=== PATIENT | female | born 1975 | race Caucasian/White ===

== ENCOUNTER 2017-11-16 15:21 | Emergency (ER) | payer BC, OTHER ==
[2017-11-16 16:48] VITALS: BP 131/91
--- NOTE | 2017-11-16 17:55 | UC ---
Throat Pain/Nasal Sage HPI - HPI Summary HPI Summary: finished tamiflu- then developed a sore throat with white pustula---Md called in augmentin --concerned because she is getting worse - History of Current Complaint Chief Complaint: UCGeneralIllness Stated Complaint: SORE THROAT Time Seen by Provider: 11/16/17 17:49 Hx Obtained From: Patient Hx Last Menstrual Period: spotting still ?: No Onset/Duration: Sudden Onset Severity: Moderate Pain Intensity: 6 Cough: None Associated Signs & Symptoms: Positive: Hoarseness - Allergies/Home Medications Allergies/Adverse Reactions: Allergies Allergy/AdvReac Type Severity Reaction Status Date / Time No Known Allergies Allergy Verified 11/16/17 16:37 Home Medications: Home Medications Acetaminophen [Acetaminophen Extra Strength] 1,000 mg PO ONCE 11/16/17 [History Confirmed 11/16/17] Ibuprofen TAB* [Motrin TAB* 600 MG] 600 mg PO ONCE 11/16/17 [History Confirmed 11/16/17] PMH/Surg Hx/FS Hx/Imm Hx Previously Healthy: Yes - Surgical History Surgical History: Yes Surgery Procedure, Year, and Place: csection x1;. MYOMECTOMY UTERINE FIBROID; - Family History Known Family History: Positive: Other - Positive MGM for Breast CA in mother - Social History Occupation: Employed Full-time Lives: With Family Alcohol Use: None Substance Use Type: None Smoking Status (MU): Never Smoked Tobacco Review of Systems Constitutional: Negative Skin: Negative Eyes: Negative ENT: Sore Throat Respiratory: Cough Cardiovascular: Negative Gastrointestinal: Negative Genitourinary: Negative Motor: Negative Neurovascular: Negative Musculoskeletal: Negative Neurological: Headache Psychological: Negative Is Patient Immunocompromised?: No All Other Systems Reviewed And Are Negative: Yes Physical Exam Triage Information Reviewed: Yes Appearance: Well-Nourished, Ill-Appearing, Pain Distress Vital Signs: Initial Vital Signs Temp 98.8 F 11/16/17 16:40 Pulse 98 11/16/17 16:40 Resp 18 11/16/17 16:40 BP 131/91 11/16/17 16:40 Pulse Ox 99 11/16/17 16:40 Vital Signs Reviewed: Yes Eye Exam: Normal Eyes: Positive: Conjunctiva Clear ENT Exam: Normal ENT: Positive: Normal ENT inspection, Hearing grossly normal, Pharyngeal erythema, Nasal congestion, Tonsillar swelling, Tonsillar exudate, Uvula midline. Negative: TMs normal, Trismus, Muffled voice, Hoarse voice, Dental tenderness, Sinus tenderness Dental Exam: Normal Neck exam: Normal Neck: Positive: Supple, Nontender, No Lymphadenopathy Respiratory Exam: Normal Respiratory: Positive: Chest non-tender, Lungs clear, Normal breath sounds, No respiratory distress, No accessory muscle use Cardiovascular Exam: Normal Cardiovascular: Positive: RRR, No Murmur, Pulses Normal, Brisk Capillary Refill Abdominal Exam: Normal Abdomen Description: Positive: Nontender, No Organomegaly, Soft. Negative: CVA Tenderness (R), CVA Tenderness (L) Musculoskeletal Exam: Normal Musculoskeletal: Positive: Strength Intact, ROM Intact, No Edema Neurological Exam: Normal Neurological: Positive: Alert, Muscle Tone Normal Psychological Exam: Normal Skin Exam: Normal Throat Pain/Nasal Course/Dx - Course Assessment/Plan: prednisone, robitussin and codiene, draw labs follow with pcp - Differential Dx/Diagnosis Provider Diagnoses: Viral pharyngitis Discharge - Discharge Plan Condition: Stable Disposition: HOME Prescriptions: guaiFENesin/CODIEN 100MG-10MG* [Robitussin AC 100Mg-10Mg*] 5 - 10 ml PO Q4H PRN #60 ml MDD 40 PRN Reason: cough predniSONE TAB* [Deltasone TAB*] 40 mg PO DAILY 6 Days #9 tab Patient Education Materials: Viral Syndrome (ED) Referrals: Russell Bradley DO [Primary Care Provider] - 2 Days
[2017-11-16] MEDS ORDERED: predniSONE TAB* 20 MG PO ONE ×2 (18:05→19:53)
--- NOTE | 2017-11-16 19:34 | RAD ---
INDICATION: Chest pain with inspiration. Cough, cold symptoms. Shortness of breath. COMPARISON: July 03, 2016 TECHNIQUE: Dual energy PA and routine lateral views of the chest were obtained. REPORT: Aside from mild apical pleural parenchymal scarring the lungs and pleural spaces are clear. Negative for pneumothorax. The heart, pulmonary vasculature, and mediastinal contours are unremarkable. Unremarkable osseous structures and soft tissue contours. IMPRESSION: No evidence for acute intrathoracic disease.
[2017-11-16] MEDS ORDERED: guaiFENesin/CODIEN 100MG-10MG* 5 ML UDC PO ONE (19:57)
[2017-11-17 14:19] LABS: Hematocrit 38 % (35-47); Hemoglobin 12.7 g/dl (12.0-16.0); Mean Corpuscular HGB Conc 33 g/dl (31-36); Mean Corpuscular Hemoglobin 28 pg (27-31); Mean Corpuscular Volume 84 fL (80-97); Mean Platelet Volume 8 um3 (7.4-10.4); Platelet Count 222 10^3/ul (150-450); Red Blood Count 4.57 10^6/ul (4.0-5.4); Red Cell Distribution Width 14 % (10.5-15)
[2017-11-17 14:32] LABS: EGFR Non-African American 86.6 (>60)
[2017-11-17 14:44] LABS: ABS Basophils 0 10^3/ul (0-0.2); ABS Eosinophils 0.1 10^3/ul (0-0.6); ABS Monocytes 0.4 10^3/ul (0-0.8); ABS Neutrophils 7.5 10^3/ul (1.5-7.7); ABS Nucleated RBC 0 10^3/ul; Eosinophil % 1.6 % (0-6); Lymphocyte % 10.6 % (25-47); Nucleated Red Blood Cells % 0.1
--- NOTE | 2017-11-17 16:43 | UC ---
- Progress Note Progress Note: Call patient and notify her that her mono test is negative
== END 2017-11-16 20:30 | disposition home or self-care (01) ==
LOC: UCEAST 15:21
DX: J02.8 Acute pharyngitis due to other specified organisms (principal); R05 Cough; R51 Headache
CPT/HCPCS: 36415; 71046; 80053; 85025; 86308; 86664; 86665; 87502; 87651; 99213; A9270-GY; G0463; J7512

== ENCOUNTER 2018-02-09 12:27 | Emergency (ER) | payer BC ==
--- NOTE | 2018-02-09 14:06 | RAD ---
INDICATION: Neck pain status post injury. COMPARISON: There are no prior studies available for comparison. TECHNIQUE: A single lateral film of the cervical spine was obtained. FINDINGS: C1-C7 are visualized. The vertebra are in normal alignment. No prevertebral soft tissue swelling or fracture is seen. There is mild diffuse degenerative disc disease throughout the cervical spine. IMPRESSION: LIMITED STUDY, NO EVIDENCE FOR FRACTURE OR SUBLUXATION.
--- NOTE | 2018-02-09 14:38 | RAD ---
INDICATION: Trauma, neck pain. COMPARISON: Comparison is made with a prior exam of the cervical spine obtained earlier today. TECHNIQUE: 5 views of the cervical spine were obtained including lateral, oblique, AP, open-mouth odontoid views. FINDINGS: C1-C7 are visualized. The vertebra are in normal alignment. No prevertebral soft tissue swelling or fracture is seen. There is mild diffuse degenerative disc disease throughout the cervical spine. There appears to be mild to moderate bilateral neural foraminal narrowing at the C4-C5, C5-C6 and C6-C7 levels. IMPRESSION: 1. NO EVIDENCE FOR FRACTURE OR SUBLUXATION. 2. MILD TO MODERATE CERVICAL SPONDYLOSIS.
[2018-02-09 14:51] VITALS: BP 162/99
--- NOTE | 2018-02-09 15:00 | UC ---
Neck Pain HPI - HPI Summary HPI Summary: This is a 42 yo female who hit her head yesterday and is here today with c/o neck pain. She was under her porch and struck her head on a beam, she had immediate pain in her neck. No LOC. She has FROM in her neck but pain with any movement. No numbness, tingling or weakness in extremities. - History of Current Complaint Chief Complaint: UCHeadInjury Stated Complaint: NECK AND HEAD INJURY Hx Last Menstrual Period: more than 1 year Pain Intensity: 6 - Allergies/Home Medications Allergies/Adverse Reactions: Allergies Allergy/AdvReac Type Severity Reaction Status Date / Time No Known Allergies Allergy Verified 02/09/18 12:55 PMH/Surg Hx/FS Hx/Imm Hx Previously Healthy: Yes - Surgical History Surgical History: Yes Surgery Procedure, Year, and Place: csection x1;. MYOMECTOMY UTERINE FIBROID; - Family History Known Family History: Positive: Other - Positive MGM for Breast CA in mother - Social History Alcohol Use: Rare Substance Use Type: None Smoking Status (MU): Never Smoked Tobacco Review Of Systems Constitutional: Positive: Negative Skin: Positive: Negative Eyes: Positive: Negative ENT: Positive: Negative Respiratory: Positive: Negative Cardiovascular: Positive: Negative Gastrointestinal: Positive: Negative Genitourinary: Positive: Negative Musculoskeletal: Positive: Arthralgia Neurological: Positive: Negative Psychological: Positive: Negative All Other Systems Reviewed And Are Negative: No Physical Exam Triage Information Reviewed: Yes Appearance: Pain Distress - mild Vital Signs: Initial Vital Signs Temp 98.3 F 02/09/18 12:48 Pulse 87 02/09/18 12:48 Resp 18 02/09/18 12:48 BP 152/100 02/09/18 12:48 Pulse Ox 100 02/09/18 12:48 Vital Signs Reviewed: Yes ENT: Positive: Tonsillar swelling - L Neck exam: Normal Neck: Positive: Supple, Nontender Respiratory Exam: Normal Respiratory: Positive: Chest non-tender, Lungs clear Cardiovascular: Positive: RRR, No Murmur Abdomen Description: Positive: Nontender Musculoskeletal: Positive: Other: - TTP over mid cervical spine and trapezium on the R Neurological: Positive: Muscle Tone Normal, Other: - sensation and strength intact Psychological Exam: Normal Skin Exam: Normal Diagnostics - Laboratory Diagnostic Studies Completed/Ordered: XR CS - no fx or subluxation Neck Pain Course/Dx - Course Course Of Treatment: 42 yo female who injured her neck yesterday. XR neg for fx. Recommend NSAIDs, heat and muscle relaxants - Differential Dx/Diagnosis Differential Dx/HQI/PQRI: Cervical Fracture, Sprain, Strain Provider Diagnoses: 1. Cervical strain Discharge - Sign-Out/Discharge Documenting (check all that apply): Discharge/Admit/Transfer - Discharge Plan Condition: Stable Disposition: HOME Prescriptions: Cyclobenzaprine TAB* [Flexeril 10 MG TAB*] 10 mg PO TID PRN #30 tab PRN Reason: muscle spasm Hydrocodone/Acetaminophen [Hydrocodone-Acetamin 5-325 mg] 1 each PO Q4H PRN #30 tablet MDD 6 tabs PRN Reason: Pain Patient Education Materials: Cervical Strain (ED) Referrals: Chrissy Lu PA [Primary Care Provider] - If Needed Additional Instructions: Instructions: 1. Please cont ibuprofen 600 mg three times daily as needed 2. Use muscle relaxant and narcotic pain medication as needed for pain 3. Apply heat frequently - Billing Disposition and Condition Condition: STABLE Disposition: HOME
== END 2018-02-09 15:00 | disposition home or self-care (01) ==
LOC: UCEAST 12:27
DX: S16.1XXA Strain of muscle, fascia and tendon at neck level, initial encounter (principal); W22.09XA Striking against other stationary object, initial encounter; Y93.89 Activity, other specified; Y92.008 Other place in unspecified non-institutional (private) residence as the place of occurrence of the external cause; M47.812 Spondylosis without myelopathy or radiculopathy, cervical region
CPT/HCPCS: 72020; 72050; 99212; G0463

== ENCOUNTER 2019-01-18 17:11 | Emergency (ER) | payer BC, OTHER ==
--- NOTE | 2019-01-18 17:58 | UC ---
Throat Pain/Nasal Sage HPI - HPI Summary HPI Summary: 43 yo female presents with sore throat since yesterday. She tells me that she is concerned she has strep because she has toddlers at home. Her kids were sick a week ago with cold symptoms and are on antibiotics and feeling better. Pt is eating and drinking well. Denies fever or chills. She took some ibuprofen for her discomfort with mild relief. - History of Current Complaint Stated Complaint: SORE THROAT Time Seen by Provider: 01/18/19 17:58 Hx Obtained From: Patient Hx Last Menstrual Period: more than 1 year Onset/Duration: Sudden Onset Severity: Mild Pain Intensity: 3 Pain Scale Used: 0-10 Numeric - Allergies/Home Medications Allergies/Adverse Reactions: Allergies Allergy/AdvReac Type Severity Reaction Status Date / Time No Known Allergies Allergy Verified 11/23/18 07:47 PMH/Surg Hx/FS Hx/Imm Hx - Additional Past Medical History Additional PMH: None - Surgical History Surgical History: Yes Surgery Procedure, Year, and Place: csection x1;. MYOMECTOMY UTERINE FIBROID; - Family History Known Family History: Positive: Hypertension, Other - Positive MGM for Breast CA in mother - Social History Alcohol Use: Rare Substance Use Type: None Smoking Status (MU): Never Smoked Tobacco Review of Systems All Other Systems Reviewed And Are Negative: Yes Constitutional: Positive: Negative Skin: Positive: Negative Eyes: Positive: Negative ENT: Positive: Sore Throat Respiratory: Positive: Negative Cardiovascular: Positive: Negative Neurological: Positive: Negative Psychological: Positive: Negative Physical Exam - Summary Physical Exam Summary: GENERAL: NAD. WDWN. No pain distress. SKIN: No rashes, sores, lesions, or open wounds. HEENT: Head: AT/NC Eyes: EOM intact. Conjunctiva clear without inflammation or discharge. Ears: Hearing grossly normal. TMs intact, no bulging, erythema, or edema. Nose: Nasal mucosa pink and moist. NTTP maxillary and frontal sinus. Throat: Posterior oropharynx without exudates, erythema, or tonsillar enlargement. Uvula midline. NECK: Supple. Nontender. No lymphadenopathy. CHEST: CTAB. No r/r/w. No accessory muscle use. Breathing comfortably and in no distress. CV: RRR. Without m/r/g. Pulses intact. Cap refill <2seconds NEURO: Alert. PSYCH: Age appropriate behavior. Triage Information Reviewed: Yes Vital Signs: Vital Signs: Temp Pulse Resp BP Pulse Ox 98.3 F 95 18 150/100 100 01/18/19 18:05 01/18/19 18:05 01/18/19 18:05 01/18/19 18:43 01/18/19 18:05 Laboratory Tests 01/18/19 18:07 Group A Strep Rapid Negative Vital Signs Reviewed: Yes Throat Pain/Nasal Course/Dx - Course Course Of Treatment: POC strep negative. Suspect viral sore throat. Discussed with pt viral vs bacterial cause. Will rx for prednisolone and have her f/u if symptoms do not improve. - Differential Dx/Diagnosis Provider Diagnosis: Sore throat Discharge - Sign-Out/Discharge Documenting (check all that apply): Patient Departure All imaging exams completed and their final reports reviewed: No Studies - Discharge Plan Condition: Stable Disposition: HOME Prescriptions: predniSONE TAB* [Deltasone 20 MG TAB*] 20 mg PO DAILY #5 tab Patient Education Materials: Pharyngitis (ED) Referrals: Chrissy Lu PA [Primary Care Provider] - Additional Instructions: If you develop a fever, shortness of breath, chest pain, new or worsening symptoms - please call your PCP or go to the ED. Your blood pressure was high at todays visit. Please see your primary provider within 4 weeks for recheck and re-evaluation. - Billing Disposition and Condition Condition: STABLE Disposition: Home
[2019-01-18] MEDS ORDERED: Dexamethasone TAB* 4 MG PO ONE (18:29)
[2019-01-18 18:44] VITALS: BP 150/100
== END 2019-01-18 18:35 | disposition home or self-care (01) ==
LOC: UCEAST 17:11
DX: J02.9 Acute pharyngitis, unspecified (principal)
CPT/HCPCS: 87651; 99212; G0463; J8540

== ENCOUNTER 2019-02-25 10:57 | Emergency (ER) | payer BC, OTHER ==
[2019-02-25] MEDS ORDERED: Morphine INJ* 10 MG/ML 1 ML CARPUJECT IV ONE (11:02)
[2019-02-25] MEDS ORDERED: NS 0.9% 1000 ML** 1,000 ML IV ONE (11:02)
[2019-02-25] MEDS ORDERED: Ondansetron INJ* 2 MG/ML VIAL IV ONE (11:05)
[2019-02-25] MEDS ORDERED: Iodixanol* (CONTRAST) 320 MG/ML 100 ML SDV IV ONE (11:09)
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
[2019-02-25] MEDS ORDERED: Morphine 4 MG/ML VIAL (1 ml) 4 MG/ML VIAL ONE (11:15)
[2019-02-25] MEDS ORDERED: Morphine 4 MG/ML VIAL (1 ml) 4 MG/ML VIAL IV ONE (11:16)
[2019-02-25 11:35] LABS: ABS Eosinophils 0.1 10^3/ul (0-0.6); ABS Lymphocytes 2.2 10^3/ul (1.0-4.8); ABS Monocytes 0.5 10^3/ul (0-0.8); ABS Neutrophils 3.9 10^3/ul (1.5-7.7); Eosinophil % 1.1 %; Hematocrit 40 % (35-47); Hemoglobin 13.2 g/dL (12.0-16.0); Lymphocyte % 33.6 %; Mean Corpuscular HGB Conc 33 g/dL (31-36); Mean Corpuscular Hemoglobin 28 pg (27-31); Mean Corpuscular Volume 84 fL (80-97); Mean Platelet Volume 7.6 fL (7.4-10.4); Nucleated Red Blood Cells % 0.1; Platelet Count 270 10^3/uL (150-450); Red Blood Count 4.75 10^6 /uL (3.70-4.87); Red Cell Distribution Width 14 % (10.5-15); White Blood Count 6.7 10^3/uL (3.5-10.8)
[2019-02-25 11:52] LABS: Albumin 4.5 g/dL (3.2-5.2); Albumin/Globulin Ratio 1.6 (1-3); BUN/Creatinine Ratio 11.8 (8-20); Calcium 9.7 mg/dL (8.6-10.3); EGFR African American 87.5 (>60); EGFR Non-African American 72.3 (>60); Globulin 2.8 g/dL (2-4); Potassium 3.6 mmol/L (3.5-5.0); Total Bilirubin 1.1 mg/dL (0.2-1.0); Total Protein 7.3 g/dL (6.4-8.9)
[2019-02-25 13:44] LABS: Urine Appearance Clear; Urine Bilirubin Negative (Negative); Urine Blood Negative (Negative); Urine Color Straw; Urine Glucose Negative (Negative); Urine Ketones Trace (Negative); Urine Nitrite Negative (Negative); Urine Protein Negative (Negative); Urine Specific Gravity 1.019 (1.010-1.030); Urine Urobilinogen Negative (Negative)
[2019-02-25] MEDS ORDERED: Ketorolac INJ* 30 MG/ML 1 ML VIAL IV PUSH ONE (15:07)
[2019-02-25] MEDS ORDERED: Tetan/Diph/Pertus SYR(Tdap)* 0.5 ML SYR(BOOSTRIX) use SYR IM ONE (15:19)
[2019-02-25] MEDS ORDERED: Bacitracin OINTMENT* 0.5% 0.5 oz TUBE ONE (15:38)
[2019-02-25] MEDS ORDERED: Bacitracin OINTMENT* 0.5% 0.5 oz TUBE TOPICAL ONE (15:40)
[2019-02-25 17:57] VITALS: BP 163/98
== END 2019-02-25 15:30 | disposition home or self-care (01) ==
LOC: ED 10:57
DX: R07.9 Chest pain, unspecified (principal); R10.9 Unspecified abdominal pain; M54.2 Cervicalgia; M25.569 Pain in unspecified knee; K76.9 Liver disease, unspecified; N20.0 Calculus of kidney; M50.321 Other cervical disc degeneration at C4-C5 level; M50.322 Other cervical disc degeneration at C5-C6 level; S62.303A Unspecified fracture of third metacarpal bone, left hand, initial encounter for closed fracture; V43.52XA Car driver injured in collision with other type car in traffic accident, initial encounter; Y92.9 Unspecified place or not applicable; F41.9 Anxiety disorder, unspecified
CPT/HCPCS: 36415; 71260; 72125; 74177; 80053; 81003; 82550; 83605; 83690; 84484; 85025; 90471; 90715; 93005; 96361; 96374; 96375; 96376; 99285; A9270-GY; J1885; J2270; J2405; Q9967

== ENCOUNTER 2019-04-04 07:42 | Emergency (ER) | payer BC, OTHER ==
--- OUTSIDE RECORDS SUMMARY | 2019-04-04 07:47 | XMS REPORT | Continuity of Care Document ---
:1975 External Reference #:[id number] Author Name Randal Barrett Care Team Providers Name Role Phone Cecilia Prince PA Primary Care Physician Unavailable Payers Date Identification Numbers Payment Provider Subscriber Policy Number: [id number] [facility] Hanna Stacy PayID: [id number] [address] [place] [address] Onset: 2019 Policy Number: [id number] [employer] Hanna Stacy PayID: [id number] [place] [address] Family History Date Family Member(s) Observation Comments General Diabetes General Heart Disease Social History Type Date Description Comments Sex Unknown 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 M.DAmalia 02/25/2019 Ibuprofen by mouth three Unknown - 800mg Tablets times a day as 02/25/2019 needed Baclofen 1 tab by mouth Unknown - 20mg Tablets three times a 07/15/2017 day Vitamin D3 Ultra one by mouth Unknown - Potency once weekly 07/15/2017 [id number] Tablets Multi Vitamin 1 by mouth every Unknown - Tablets day 07/15/2017 Magox 400 1 by mouth every Unknown - 400(241.3mg) mg day 07/15/2017 Tablets Vital Signs Date Vital Result Comment 03/06/2019 9:36am Height 64 inches 5'4" Weight 171.00 lb Heart Rate 88 /min BP Systolic 124 mmHg BP Diastolic 78 mmHg Body Temperature 98.1 F Pain Level 7 BMI (Body Mass Index) 29.3 kg/m2 02/26/2019 2:24pm Height 64 inches 5'4" Weight 175.00 lb BP Systolic 132 mmHg BP Diastolic 74 mmHg Respiratory Rate 15 /min Pain Level 8 BMI (Body Mass Index) 30.0 kg/m2 07/15/2017 2:40pm Height 64 inches 5'4" Weight 171.00 lb Heart Rate 66 /min BP Systolic Sitting 102 mmHg BP Diastolic Sitting 78 mmHg Pain Level 0 BMI (Body Mass Index) 29.3 kg/m2 Encounters Type Date Location Provider Dx Diagnosis Office Visit 07/15/2017 Neurosurgery Mila Monroe, M54.6 Pain in thoracic 3:00p [facility] PA-C spine Plan of Treatment Future Appointment(s):03/26/2019 1:30 pm - Ligia Lin MD at [facility]03/06/2019 - Ligia Lin, MDM25.542 Pain in joints of left handFollow up:Follow up: 3 ttgmdH89.532 Pain in left hdajiP10.222D Contusion of left hand, subsequent encounter
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
--- OUTSIDE RECORDS SUMMARY | 2019-04-04 07:47 | XMS REPORT | Continuity of Care Document ---
:1975 External Reference #:[id number] Author Name Eleni De La Cruz Care Team Providers Name Role Phone Cecilia Prince PA Primary Care Physician Unavailable Payers Date Identification Numbers Payment Provider Subscriber Policy Number: [id number] [facility] Hanna Stacy PayID: [id number] [address] [place] [address] Onset: 2019 Policy Number: [id number] [employer] Hanna Stacy PayID: [id number] [place] [address] Family History Date Family Member(s) Observation Comments General Diabetes General Heart Disease Social History Type Date Description Comments Sex Unknown 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 ETOH Use Denies alcohol use Tobacco Use Start: Unknown Patient has never smoked Recreational Drug Use Denies Drug Use Smoking Status Reviewed: 03/10/19 Patient has never smoked Allergies, Adverse Reactions, [...] mouth Unknown - Potency once weekly 07/15/2017 13950Cmbv Tablets Multi Vitamin 1 by mouth every Unknown - Tablets day 07/15/2017 Magox 400 1 by mouth every Unknown - 400(241.3mg) mg day 07/15/2017 Tablets Vital Signs Date Vital Result Comment 03/10/2019 1:40pm Height 64 inches 5'4" Weight [...] M54.6 Pain in thoracic 3:00p [facility] PA-C spine Plan of Treatment Future Appointment(s):03/19/2019 9:30 am - [facility] 1:30 pm - Ligia Lin MD at [facility]03/10/2019 - Ligia Lin, MDM25.542 Pain in joints of left handM25.532 Pain in left desdbB95.222D Contusion of left hand, subsequent encounterFollow up:Follow up: 10 days
[2019-04-04 07:54] VITALS: BP 140/80
--- NOTE | 2019-04-04 08:05 | UC ---
Throat Pain/Nasal Sage HPI - HPI Summary HPI Summary: This patient is a 43-year-old female who presents to the urgent care with chief complaint of having sore throat, but it is a pain, nasal congestion, runny nose , and painful swallowing. She reports that the symptoms started last Saturday and has been worsening. She reports chills but no fever. She has no other complaints. - History of Current Complaint Chief Complaint: UCGeneralIllness Stated Complaint: THROAT Time Seen by Provider: 04/04/19 07:50 Hx Obtained From: Patient Hx Last Menstrual Period: 1 year ?: No Onset/Duration: Gradual Onset Pain Intensity: 7 - Allergies/Home Medications Allergies/Adverse Reactions: Allergies Allergy/AdvReac Type Severity Reaction Status Date / Time No Known Allergies Allergy Verified 03/24/19 10:00 PMH/Surg Hx/FS Hx/Imm Hx Previously Healthy: Yes - Surgical History Surgical History: Yes Surgery Procedure, Year, and Place: csection x1;. MYOMECTOMY UTERINE FIBROID; - Family History Known Family History: Positive: Hypertension, Other - Positive MGM for Breast CA in mother - Social History Alcohol Use: Rare Substance Use Type: None Smoking Status (MU): Never Smoked Tobacco Have You Smoked in the Last Year: No Review of Systems All Other Systems Reviewed And Are Negative: Yes Constitutional: Positive: Chills Skin: Positive: Negative Eyes: Positive: Negative ENT: Positive: Sore Throat, Nasal Discharge, Sinus Congestion Respiratory: Positive: Negative Cardiovascular: Positive: Negative Gastrointestinal: Positive: Negative Genitourinary: Positive: Negative Motor: Positive: Negative Neurovascular: Positive: Negative Musculoskeletal: Positive: Negative Neurological: Positive: Negative Psychological: Positive: Negative Is Patient Immunocompromised?: No Physical Exam - Summary Physical Exam Summary: P/E: URI Vital signs: Reviewed Gen.: Patient is a well developed and nourished female in no acute distress. Patient is sitting comfortably on the stretcher. Head: Normacephalic and atraumatic Eyes: PERRLA, EOMI x2. Ears: Right ear canal and TM WNL Left ear canal and TM WNL Nose Nose with dry mucosa and clear discharge. No sinus tenderness and mouth: Positive pharyngeal erythema with white exudate. Neck: Supple, positive bilateral submandibular and anterior cervical lymphadenopathy. No JVD Lungs: CTA B/L CVS: S1 & S2 present. No murmurs appreciated. ABDOMEN: Soft NT w/ positive BS. EXT: FROM x 4 NEURO: A+O X 3. Triage Information Reviewed: Yes Appearance: Well-Appearing Vital Signs: Initial Vital Signs Temp 98.8 F 04/04/19 07:48 Pulse 86 04/04/19 07:48 Resp 17 04/04/19 07:48 BP 140/80 04/04/19 07:48 Pulse Ox 99 04/04/19 07:48 Vital Signs Reviewed: Yes Throat Pain/Nasal Course/Dx - Course Course Of Treatment: Rapid strep is negative. However the patient has is white exudate in both tonsils. I will send blood test for infection atelectasis. However the patient requests antibiotics since the patient thinks that is a bacterial infection in her throat. Therefore I would place the patient in azithromycin. I discussed all the findings and test results with the patient and parents and they were instructed to return to the or go to the ED if develops any fever , worsen sore throat unable to swallow, drooling, unable to open her mouth, or any other symptoms. They understands and agrees. Plan of care was discussed and understand and agrees. All questions were answered at patient satisfaction. There were no further complaints or concerns. Patient is A + O X 3. hemodynamically stable - Differential Dx/Diagnosis Provider Diagnosis: Pharyngitis Discharge - Sign-Out/Discharge Documenting (check all that apply): Patient Departure All imaging exams completed and their final reports reviewed: No Studies - Discharge Plan Condition: Stable Disposition: HOME Prescriptions: Azithromyxin JENNIFFER (NF) [Z-Jenniffer (Zithromax) 250 mg tabs #6] 2 tab PO .TODAY, THEN 1 DAILY #6 tab Patient Education Materials: Pharyngitis (ED) Referrals: Cecilia Prince PA [Primary Care Provider] - - Billing Disposition and Condition Condition: STABLE Disposition: Home
--- NOTE | 2019-04-05 08:31 | UC ---
- Progress Note Progress Note: Monospot negative. Course/Dx - Diagnoses Provider Diagnoses: Pharyngitis Discharge - Sign-Out/Discharge Documenting (check all that apply): Post-Discharge Follow Up All imaging exams completed and their final reports reviewed: No Studies - Discharge Plan Condition: Stable Disposition: HOME Prescriptions: Azithromyxin JENNIFFER (NF) [Z-Jenniffer (Zithromax) 250 mg tabs #6] 2 tab PO .TODAY, THEN 1 DAILY #6 tab Patient Education Materials: Pharyngitis (ED) Referrals: Cecilia Prince PA [Primary Care Provider] - Additional Instructions: Take medications as instructed Increase your fluid intake F/U with PCP in the next 2-3 days Return to the UC if symptoms worsen - Billing Disposition and Condition Condition: STABLE Disposition: Home
[2019-04-07 14:06] LABS: EBV Capsid Ag IgG Ab Positive (Negative); EBV Capsid Ag IgM Ab Negative (Negative); Epstein-Barr Nuclear Antigen Positive (Negative)
== END 2019-04-04 08:30 | disposition home or self-care (01) ==
LOC: UCEAST 07:42
DX: J02.9 Acute pharyngitis, unspecified (principal)
CPT/HCPCS: 36415; 86308; 86664; 86665; 87651; 99212; G0463